=== PATIENT | male | born 1955 | race African-American/Black ===

== ENCOUNTER 2025-04-13 16:24 | Inpatient (IN) | payer MEDICARE, OTHER ==
[~2025-04-13] VITALS: Ht 142.2 cm; Wt 61.2 kg
[2025-04-13 16:57] LABS: APPEARANCE,URINE CLEAR (CLEAR); BLOOD, URINE Trace-intact Ery/uL (NEGATIVE); LEUKOCYTE ESTERASE ,URINE Negative (NEGATIVE); NITRITE, URINE NEGATIVE (NEGATIVE); UGLUCOSE Negative (NEGATIVE)
[2025-04-13] MEDS: ACETAMINOPHEN 650 MG/SUPP.RECT RC ONE (17:00)
[2025-04-13] MEDS: IV NS 0.9% 1,000 ML BAG IV ONE (17:00)
[2025-04-13 17:01] LABS: PLATELET COUNT (AUTO) 190 K/uL (150-450); RED BLOOD CELL COUNT(AUTO) 4.54 MIL/uL (4.5-6.0); RED CELL DISTRIBUTION WIDTH 14.4 % (11.5-15.0); WHITE BLOOD COUNT (AUTO) 14.8 K/uL (4.3-11.0)
[2025-04-13] MEDS ORDERED: ACETAMINOPHEN 650 MG/SUPP.RECT RC ONE (17:01)
[2025-04-13 17:08] LABS: ADD URINE CULTURE NO; SQUAMOUS EPITHELIAL CELL,UR None Seen /HPF (None Seen)
[2025-04-13 17:09] LABS: CALCIUM, SERUM 9.1 mg/dL (8.5-10.1); CREATININE 0.9 mg/dL (0.6-1.3); SODIUM SERUM 140 mmol/L (136-145); UREA NITROGEN, BLOOD 17 mg/dL (7-18)
[2025-04-13] MEDS: PIPERACILLIN /TAZOBACTAM 3.375 G in IV D5W 50 ML IV ONE (17:10)
[2025-04-13 17:13] LABS: INR 1.06 (0.91-1.10)
[2025-04-13 17:14] LABS: ASPARTATE AMINOTRANSFERASE 872 U/L (15-37); TOTAL PROTEIN, SERUM 7.4 g/dL (6.4-8.2)
[2025-04-13 17:24] LABS: LACTIC ACID 1.9 mmol/L (0.4-2.0)
[2025-04-13] MEDS ORDERED: INSU100I30 SQ (17:38)
[2025-04-13] MEDS ORDERED: GABA800T11 PO (17:38)
[2025-04-13] MEDS ORDERED: PANT40TA2 PO (17:38)
[2025-04-13] MEDS ORDERED: MAGN400O6 PO (17:38)
[2025-04-13] MEDS ORDERED: AMIN30LI27 PO (17:38)
[2025-04-13] MEDS ORDERED: TAMS-12 PO (17:38)
[2025-04-13] MEDS ORDERED: PSYL3.4P6 PO (17:38)
[2025-04-13] MEDS ORDERED: FERR325T24 PO (17:38)
[2025-04-13] MEDS ORDERED: ALOG25TA PO (17:38)
[2025-04-13] MEDS ORDERED: CLOP75TA15 PO (17:38)
[2025-04-13] MEDS ORDERED: INSU100I14 SQ (17:38)
[2025-04-13] MEDS ORDERED: L. A1TAB10 PO (17:38)
[2025-04-13] MEDS ORDERED: MULT-594 PO (17:38)
[2025-04-13] MEDS ORDERED: BISA10SU11 RC (17:38)
[2025-04-13] MEDS ORDERED: ACET325T53 PO (17:38)
[2025-04-13] MEDS ORDERED: TROS20TA3 PO (17:38)
[2025-04-13] MEDS ORDERED: ASCO500T20 PO (17:38)
[2025-04-13] MEDS ORDERED: TRAM50TA2 PO ×2 (17:38)
[2025-04-13] MEDS ORDERED: NA P133E RC (17:38)
[2025-04-13] MEDS ORDERED: APIX2.5T PO (17:38)
[2025-04-13] MEDS ORDERED: CHOL100043 PO (17:38)
[2025-04-13] MEDS ORDERED: METF-442 PO (17:38)
[2025-04-13] MEDS ORDERED: LIDO28.310 TP (17:38)
[2025-04-13] MEDS ORDERED: ROSU20TA32 PO (17:38)
[2025-04-13 20:00] VITALS: BP 126/63; TEMP 99.5; O2SAT 99
[2025-04-13] MEDS ORDERED: HOME MED MISCELLANEOUS XX SCH ×2 (20:00)
[2025-04-13] MEDS ORDERED: ONDANSETRON HCL/PF 4 MG/2 ML VIAL IVP PRN (20:00)
[2025-04-13] MEDS ORDERED: ACETAMINOPHEN 325 MG TABLET PO PRN (20:00)
[2025-04-13] MEDS ORDERED: TRAMADOL HCL 50 MG TABLET PO PRN ×2 (20:00)
[2025-04-13] MEDS ORDERED: NA PHOS,M-B/NA PHOS,DI-BA 1 EA ENEMA RC PRN (20:00)
[2025-04-13] MEDS ORDERED: Z GUARD REMEDY 4 OZ OINT TP PRN (20:00)
[2025-04-13] MEDS ORDERED: HYDROCODONE/APAP 5/325MG TABLET PO PRN (20:00)
[2025-04-13] MEDS ORDERED: MAG HYDROX/AL HYDROX/SIMETH 30 ML UDC PO PRN (20:00)
[2025-04-13] MEDS ORDERED: MAGNESIUM HYDROXIDE 30 ML UDC PO PRN ×2 (20:00)
[2025-04-13] MEDS ORDERED: BISACODYL SUPP (10 MG) 10 MG/SUPP.RECT SUPP.RECT RC PRN (20:00)
[2025-04-13] MEDS ORDERED: DEXTROSE 50%-WATER 50 ML DISP.SYRIN IV PRN (20:00)
[2025-04-13] MEDS ORDERED: DOSING PER PHARMACY-VANCOMYCIN IV XX PRN (20:00)
[2025-04-13] MEDS ORDERED: ENOXAPARIN SODIUM 40 MG/0.4 ML DISP.SYRIN SQ PRN (20:30)
[2025-04-13] MEDS ORDERED: IPRATROPIUM NEB FS 0.5 MG/2.5 ML AMPUL.NEB NEB PRN (20:30)
[2025-04-13] MEDS ORDERED: ALBUTEROL FS 2.5 MG/3 ML VIAL.NEB NEB PRN (20:30)
[2025-04-13] MEDS ORDERED: PIPERACILLIN /TAZOBACTAM 3.375 G in IV D5W 50 ML IV SCH (21:00)
[2025-04-13] MEDS: VANCOMYCIN 750 MG in IV D5W 250 ML IV SCH (21:20)
[2025-04-13] MEDS: GABAPENTIN 400 MG CAPSULE PO SCH (21:20)
[2025-04-13] MEDS: PIPERACILLIN /TAZOBACTAM 3.375 G in IV D5W 100 ML IV SCH (21:21)
[2025-04-13] MEDS: BLOOD SUGAR DIAGNOSTIC 1 EACH STRIP IN SCH (22:45)
[2025-04-13] MEDS: INSULIN REGULAR, HUMAN 100 UNIT/ML 3 ML VIAL SQ PRN (22:47)
[2025-04-14] VITALS: BP 111/62; TEMP 99; O2SAT 98
[2025-04-14 04:00] VITALS: BP 118/69; TEMP 98.8; O2SAT 100
[2025-04-14 06:35] LABS: PLATELET COUNT (AUTO) 166 K/uL (150-450); RED BLOOD CELL COUNT(AUTO) 4.28 MIL/uL (4.5-6.0); RED CELL DISTRIBUTION WIDTH 14.3 % (11.5-15.0); WHITE BLOOD COUNT (AUTO) 22.3 K/uL (4.3-11.0)
[2025-04-14 07:03] LABS: CALCIUM, SERUM 8.9 mg/dL (8.5-10.1); CREATININE 1.1 mg/dL (0.6-1.3); PHOSPHORUS 2.7 mg/dL (2.5-4.9); SODIUM SERUM 140.0 mmol/L (136-145); UREA NITROGEN, BLOOD 12.0 mg/dL (7-18)
[2025-04-14 07:39] LABS: LDL 11.0 mg/dL (0-99)
[2025-04-14 08:00] VITALS: BP_SYST 110; BP_SYST 113; BP_DIAS 49; BP_DIAS 52; TEMP 97.3; TEMP 99.7; O2SAT 96; O2SAT 99
[2025-04-14] MEDS: FERROUS SULFATE (325 MG) 325 MG/TAB TABLET PO SCH (08:26)
[2025-04-14] MEDS: MULTIVITAMINS,THERAGRAN 1 UDTAB TABLET PO SCH (08:26)
[2025-04-14] MEDS: ASCORBIC ACID 500 MG TABLET PO SCH (08:26)
[2025-04-14] MEDS: ATORVASTATIN 40 MG TABLET PO SCH (08:26)
[2025-04-14] MEDS: TAMSULOSIN 0.4 MG CAP.SR.24H PO SCH (08:26)
[2025-04-14] MEDS: CLOPIDOGREL BISULFATE 75 MG TABLET PO SCH (08:26)
[2025-04-14] MEDS: CHOLECALCIFEROL 1,000 UNIT TABLET (VIT D3) PO SCH (08:27)
[2025-04-14] MEDS: PANTOPRAZOLE 40 MG TABLET.DR PO SCH (08:27)
[2025-04-14] MEDS: APIXABAN 2.5 MG TABLET PO SCH (08:29)
[2025-04-14] MEDS: PSYLLIUM SEED 1 PKT PACKET PO SCH (08:29)
[2025-04-14] MEDS: ACIDOPHILUS/BULGARICUS 1 EACH TAB.CHEW PO SCH (08:35)
[2025-04-14] MEDS: PROSOURCE / PROSTAT (PYXIS) 30 ML UDC PO SCH (08:37)
[2025-04-14] MEDS: INSULIN GLARGINE, 100 UNIT/ML CARTRIDGE SQ SCH (08:48)
[2025-04-14] MEDS: VANCOMYCIN 750 MG in IV D5W 250 ML IV SCH (10:20)
[2025-04-14] MEDS: MAGNESIUM OXIDE 400 MG TABLET PO ONE (10:20)
[2025-04-14 12:00] VITALS: BP 101/50; TEMP 99.9; O2SAT 99
[2025-04-14 16:00] VITALS: BP 125/67; TEMP 100; O2SAT 99
[2025-04-14] MEDS: ACETAMINOPHEN 325 MG TABLET PO PRN (16:48)
[2025-04-14] MEDS: LIDOCAINE 2% GEL 30 ML TUBE TP SCH (16:49)
[2025-04-14 20:00] VITALS: BP 109/53; TEMP 98.4; O2SAT 96
[2025-04-14] MEDS: MEROPENEM 1 G in IV NS 0.9% 100 ML IV SCH (21:05)
[2025-04-15] VITALS: BP 129/73; TEMP 98.8; O2SAT 99
[2025-04-15 04:00] VITALS: BP 124/81; TEMP 98.2; O2SAT 99
[2025-04-15 07:33] LABS: PLATELET COUNT (AUTO) 153 K/uL (150-450); RED BLOOD CELL COUNT(AUTO) 4.26 MIL/uL (4.5-6.0); RED CELL DISTRIBUTION WIDTH 14.6 % (11.5-15.0); WHITE BLOOD COUNT (AUTO) 13.6 K/uL (4.3-11.0)
[2025-04-15 07:45] LABS: ASPARTATE AMINOTRANSFERASE 134.0 U/L (15-37); CALCIUM, SERUM 9.1 mg/dL (8.5-10.1); CREATININE 0.8 mg/dL (0.6-1.3); PHOSPHORUS 2.2 mg/dL (2.5-4.9); SODIUM SERUM 143.0 mmol/L (136-145); TOTAL PROTEIN, SERUM 6.9 g/dL (6.4-8.2); UREA NITROGEN, BLOOD 11.0 mg/dL (7-18)
[2025-04-15 08:05] VITALS: BP 136/82; TEMP 98.1; O2SAT 98
[2025-04-15] MEDS: POTASSIUM CHLORIDE 20 MEQ TAB.PRT.SR PO SCH (09:50)
[2025-04-15 16:00] VITALS: BP 124/99; TEMP 100.5; O2SAT 98
[2025-04-15] MEDS: K PHOS NEUTRAL 250 MG TABLET PO ONE (16:12)
[2025-04-15 20:00] VITALS: BP 118/79; TEMP 98.8; O2SAT 99
[2025-04-16 04:00] VITALS: BP 124/81; TEMP 98.1; O2SAT 99
[2025-04-16 08:00] VITALS: BP 119/82; TEMP 98; O2SAT 98
[2025-04-16 08:14] LABS: PLATELET COUNT (AUTO) 172 K/uL (150-450); RED BLOOD CELL COUNT(AUTO) 5.01 MIL/uL (4.5-6.0); RED CELL DISTRIBUTION WIDTH 15.1 % (11.5-15.0); WHITE BLOOD COUNT (AUTO) 12.2 K/uL (4.3-11.0)
[2025-04-16 08:59] LABS: CALCIUM, SERUM 10.3 mg/dL (8.5-10.1); CREATININE 1.0 mg/dL (0.6-1.3); SODIUM SERUM 141.0 mmol/L (136-145); UREA NITROGEN, BLOOD 13.0 mg/dL (7-18)
[2025-04-16 09:00] LABS: PHOSPHORUS 2.6 mg/dL (2.5-4.9)
[2025-04-16 16:00] VITALS: BP 128/80; TEMP 98.8; O2SAT 98
[2025-04-16 20:00] VITALS: BP 111/72; TEMP 99.5
[2025-04-16] MEDS: AZITHROMYCIN 250 MG TABLET PO SCH (21:01)
[2025-04-16] MEDS: CEFTRIAXONE 1 G in IV D5W 50 ML IV SCH (21:02)
[2025-04-17 04:00] VITALS: BP 96/65; TEMP 98.1; O2SAT 98
[2025-04-17 05:09] LABS: HBSAG SCREEN Negative (Negative); HEPATITIS A AB, IgM Negative (Negative); HEPATITIS B CORE AB, IgM Negative (Negative)
[2025-04-17 07:48] LABS: PLATELET COUNT (AUTO) 162 K/uL (150-450); RED BLOOD CELL COUNT(AUTO) 4.70 MIL/uL (4.5-6.0); RED CELL DISTRIBUTION WIDTH 15.0 % (11.5-15.0); WHITE BLOOD COUNT (AUTO) 8.8 K/uL (4.3-11.0)
[2025-04-17 08:00] VITALS: BP 103/68; TEMP 98.4; O2SAT 98
[2025-04-17 08:04] LABS: CALCIUM, SERUM 9.1 mg/dL (8.5-10.1); CREATININE 0.8 mg/dL (0.6-1.3); SODIUM SERUM 138.0 mmol/L (136-145); UREA NITROGEN, BLOOD 13.0 mg/dL (7-18)
[2025-04-17] MEDS ORDERED: AZIT500T4 PO (10:49)
[2025-04-17] MEDS ORDERED: CEFT1FRO2 IV (10:49)
== END 2025-04-17 13:40 | DRG 871 ==
LOC: ER 16:47 → TELE-TD 19:51 → TELE1 20:38 → MEDSG1 04-15 09:58
PROVIDERS: ADMIT Nurse Practitioner Acute Care; ATTEND Nurse Practitioner Family
DX: A41.89 Other specified sepsis (principal); G92.8 Other toxic encephalopathy; J15.69 Pneumonia due to other Gram-negative bacteria; U07.1 COVID-19; Z89.612 Acquired absence of left leg above knee; I11.0 Hypertensive heart disease with heart failure; E11.51 Type 2 diabetes mellitus with diabetic peripheral angiopathy without gangrene; D64.9 Anemia, unspecified; E66.9 Obesity, unspecified; E78.5 Hyperlipidemia, unspecified; N32.81 Overactive bladder; N40.1 Benign prostatic hyperplasia with lower urinary tract symptoms; E80.6 Other disorders of bilirubin metabolism; Z78.9 Other specified health status; Z89.512 Acquired absence of left leg below knee; I25.10 Atherosclerotic heart disease of native coronary artery without angina pectoris; Z79.4 Long term (current) use of insulin; Z79.84 Long term (current) use of oral hypoglycemic drugs; Z79.02 Long term (current) use of antithrombotics/antiplatelets; Z79.01 Long term (current) use of anticoagulants; Z79.899 Other long term (current) drug therapy; Y95 Nosocomial condition; Z68.30 Body mass index [BMI] 30.0-30.9, adult; R74.01 Elevation of levels of liver transaminase levels
CPT/HCPCS: 36415; 70450-TC; 71045-TC; 76700-TC; 80048-TC; 80061-TC; 80076-TC; 80202-TC; 81001; 82962-TC; 83605-TC; 83735-TC; 84100-TC; 84443-TC; 84484-TC; 85025-TC; 85378-TC; 85730-TC; 86140-TC; 87040-TC; 87081-TC; 87086-TC; 93307-TC; A4223; G0378; J0696; J1815; J2185; J2543; J3374; J7030; J7050; J7060